=== PATIENT | female | born 1965 | race Caucasian/White ===

== ENCOUNTER 2025-04-20 04:42 | Inpatient (IN) | payer OTHER ==
[~2025-04-20] VITALS: Ht 162.6 cm; Wt 76.4 kg
--- NOTE | 2025-04-20 05:10 | ECG ---
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
[2025-04-20 05:45] LABS: Hematocrit 42.1 % (36.0-46.0); Hemoglobin 14.4 g/dL (12.2-16.2); Mean Corpuscular Hemoglobin 29.9 pg (28.0-32.0); Mean Corpuscular Volume 87.2 fL (80.0-100.0); Nucleated Red Blood Cells % 0.0 %
[2025-04-20 05:51] LABS: Potassium 3.5 mmol/L (3.5-5.1); Sodium 140 mmol/L (136-145)
[2025-04-20 05:52] LABS: Anion Gap 12 (5-15); Calcium 9.0 mg/dL (8.7-10.4); Carbon Dioxide 21 mmol/L (20-31)
[2025-04-20 05:53] LABS: Chloride 107 mmol/L (98-107)
[2025-04-20 05:57] LABS: BUN/Creatinine Ratio 17.9 (10.0-20.0); Blood Urea Nitrogen 12 mg/dL (9-23)
[2025-04-20 05:58] LABS: Glucose 153 mg/dL (74-106)
--- NOTE | 2025-04-20 06:05 | DVH ---
CHEST RADIOGRAPH Indication: CHEST PAIN Technique: Frontal and lateral view of the chest was obtained Comparison: None FINDINGS: Lines and Tubes: None Lungs: Clear Pleura: No effusion. No pneumothorax. Cardiomediastinal contours: Unremarkable Bones: Unremarkable IMPRESSION: 1. No evidence of acute disease.
--- NOTE | 2025-04-20 06:08 | ECG ---
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
--- NOTE | 2025-04-20 06:58 | ED.PDOC ---
HPI Comments This is a 59 year-old female with a Hx of HTN, high lipids, and DM, who presents to the ED with a chief complaint of substernal chest pain as of hours ago. Patient states chest pain as "pressure", non-radiating, with no associated relieving factors. Patient has no further complaints at this time and otherwise denies palpitations, dizziness, weakness, cough, or SOB. Chief Complaint: Chest Pain Time Seen by MD: 06:29 Reviewed Notes: Medications, Allergies Information Source: Patient Mode of Arrival: Ambulatory Severity: Moderate Timing: Hours Duration: Since onset Location: Substernal Radiation: No Radiation Quality: Pressure Onset: At Rest, With Light Exertion, With Heavy Exertion Past Medical History PAST MEDICAL HISTORY: DM, High Lipids, HTN Surgical History: 10 Para 4 Social History Smoker: Non-Smoker Alcohol: Denies ETOH Use Drugs: Denies Drug Use Lives In: Home Constitutional: denies: chills, diaphoresis, fatigue, fever, malaise, sweats, weakness, others EENTM: denies: blurred vision, double vision, ear bleeding, ear discharge, ear drainage, ear pain, ear ringing, eye pain, eye redness, hearing loss, mouth pain, mouth swelling, nasal discharge, nose bleeding, nose congestion, nose pain, photophobia, tearing, throat pain, throat swelling, voice changes, others Respiratory: denies: cough, hemoptysis, orthopnea, SOB at rest, shortness of breath, SOB with excertion, stridor, wheezing, others Cardiovascular: reports: chest pain; denies: dizzy spells, diaphoresis, Dyspnea on exertion, edema, irregular heart beat, left arm pain, lightheadedness, palpitations, PND, syncope, others Gastrointestinal: denies: abdomen distended, abdominal pain, blood streaked bowels, constipated, diarrhea, dysphagia, difficulty swallowing, hematemesis, melena, nausea, poor appetite, poor fluid intake, rectal bleeding, rectal pain, vomiting, others Genitourinary: denies: abnormal vagina bleeding, burning, dyspareunia, dysuria, flank pain, frequency, hematuria, incontinence, pain, , vagina discharg e, urgency, others Neurological: denies: dizziness, fainting, headache, left sided numbness, left sided weakness, numbness, paresthesia, pre-existing deficit, right sided numbness, right sided weakness, seizure, speech problems, tingling, tremors, weakness, others Musculoskeletal: denies: back pain, gout, joint pain, joint swelling, muscle pain, muscle stiffness, neck pain, others Integumetry: denies: bruises, change in color, change in hair/nails, dryness, laceration, lesions, lumps, rash, wounds, others Allergic/Immunocompromised: denies: Difficulty Healing, Frequent Infections, Hives, Itching, others Hematologic/Lymphatic: denies: anemia, blood clots, easy bleeding, easy bruising, swollen glands, others Endocrine: denies: excessive hunger, excessive sweating, excessive thirst, excessive urination, flushing, intolerance to cold, intolerance to heat, unexplained weight gain, unexplained weight loss, others Psychiatric: denies: anxiety, bipolar disorder, depression, hopeless, panic d isorder, schizophrenia, sleepless, suicidal, others All Other Systems: Reviewed and Negative Physical Exam General Appearance: Moderate Distress HEENT: Normal ENT Inspection, Pharynx Normal, TMs Normal Neck: Full Range of Motion, Non-Tender, Normal, Normal Inspection Respiratory: Chest Non-Tender, Lungs Clear, No Accessory Muscle Use, No Respiratory Distress, Normal Breath Sounds Cardiovascular: No Edema, No JVD, No Murmur, No Gallop, Normal Peripheral Pulses, Regular Rate/Rhythm Breast Exam: Deferred Gastrointestinal: No Organomegaly, Non Tender, No Pulsatile Mass, Normal Bowel Sounds, Soft Genitalia: Deferred Pelvic: Deferred Rectal: Deferred Extremities: No calf tenderness, Normal capillary refill, Normal inspection, Normal range of motion, Non-tender, No pedal edema Musculoskeletal : Apperance: Normal Neurologic: Alert, germination worker II-XII nml as Tested, No Motor Deficits, Normal Affect, Normal Mood, No Sensory Deficits Cerebellar Function: Normal Reflexes: Normal Skin: Dry, Normal Color, Warm Peripheral Pulses: 3+ Radial (R), 3+ Radial (L) Lymphatic: No Adenopathy EKG EKG : Pulse Rate (adult): 68 [place]: Normal Cardiac Rhythm: NSR Block: None Hypertrophy: None ST: Normal Was a procedure done? Was a procedure done?: No CP Differential Dx Differential Diagnosis: A-fib, Angina, Anxiety / Panic Attack, Electrolyte Disorder, Sinus Tachycardia Differential Diagnosis: CHF, HTN Essential Differential Diagnosis: Chest Wall Pain, Cholelithiasis X-Ray, Labs, Meds, VS Vital Signs Date Time Temp Pulse Resp B/P (MAP) Pulse Ox O2 Delivery O2 Flow Rate FiO2 04/20/25 07:29 163/93 04/20/25 06:47 98.2 76 18 181/90 (120) 97 98.2 04/20/25 06:06 75 04/20/25 05:08 82 04/20/25 04:53 97.6 82 18 157/94 96 97.6 Lab Test 04/20/25 06:24 04/20/25 05:22 Range/Units Troponin I High Sensitivity 105 *H 86 *H </=34 ng/L White Blood Count 5.2 4.4-10.8 10^3/uL Red Blood Count 4.83 4.0-5.20 10^6/uL Hemoglobin 14.4 12.2-16.2 g/dL Hematocrit 42.1 36.0-46.0 % Mean Corpuscular Volume 87.2 80.0-100.0 fL Mean Corpuscular Hemoglobin 29.9 28.0-32.0 pg Mean Corpuscular Hemoglobin Concent 34.2 32.0-36.0 g/dL Red Cell Distribution Width 13.8 11.8-14.3 % Platelet Count 217 140-450 10^3/uL Mean Platelet Volume 9.2 6.9-10.8 fL Neutrophils (%) (Auto) 49.4 37.0-80.0 % Lymphocytes (%) (Auto) 39.6 10.0-50.0 % Monocytes (%) (Auto) 7.6 0.0-12.0 % Eosinophils (%) (Auto) 2.3 0.0-7.0 % Basophils (%) (Auto) 1.1 0.0-2.0 % Neutrophils # (Auto) 2.6 1.6-8.6 10 ^3/uL Lymphocytes # (Auto) 2.1 0.4-5.4 10 ^3/uL Monocytes # (Auto) 0.4 0-1.3 10 ^3/uL Eosinophils # (Auto) 0.1 0-0.8 10 ^3/uL Basophils # (Auto) 0.1 0-0.2 10 ^3/uL Nucleated Red Blood Cells 0.0 % Sodium Level 140 136-145 mmol/L Potassium Level 3.5 3.5-5.1 mmol/L Chloride Level 107 98-107 mmol/L Carbon Dioxide Level 21 20-31 mmol/L Anion Gap 12 5-15 Blood Urea Nitrogen 12 9-23 mg/dL Creatinine 0.67 0.550-1.02 mg/dL Glomerular Filtration Rate Calc 100 >90 mL/min BUN/Creatinine Ratio 17.9 10.0-20.0 Serum Glucose 153 H 74-106 mg/dL Calcium Level 9.0 8.7-10.4 mg/dL Current Medications Medications (Trade) Dose Ordered Sig/Noah Route Start Time Stop Time Status Last Admin Aspirin 325 mg ONCE ONCE PO 04/20/25 07:00 04/20/25 07:01 DC 04/20/25 07:26 Nitroglycerin (Ntrostat Sublingual) 0.4 mg ONCE ONCE SL 04/20/25 07:00 04/20/25 07:01 DC 04/20/25 07:29 Enoxaparin Sodium (Lovenox) 80 mg ONCE ONCE SC 04/20/25 07:15 04/20/25 07:16 DC 04/20/25 07:57 [place] [id number] Ph: [phone] DIAGNOSTIC IMAGING Diagnostic Imaging Report : [id number] Signed PATIENT: RIKY GOMES ACCT: [id number] UNIT: [id number] : 1965 LOC: ER ROOM / BED: / AGE / SEX: 59 / F ADM STATUS: REG ER SERVICE [id number] ORDERING PHYSICIAN: SAURABH INGRAM MD PROCEDURE(s): CXR2 - CHEST TWO VIEWS ROUTINE REASON: CHEST PAIN ORDER NUMBER(s): [id number], ACCESSION NUMBER(s): [id number] CHEST RADIOGRAPH Indication: CHEST PAIN Technique: Frontal and lateral view of the chest was obtained Comparison: None FINDINGS: Lines and Tubes: None Lungs: Clear Pleura: No effusion. No pneumothorax. Cardiomediastinal contours: Unremarkable Bones: Unremarkable IMPRESSION: 1. No evidence of acute disease. Patient alert. Came in because of chest pain. Vitals stable. Answering questions. Chest x-ray reviewed does not show any acute changes. Cardiac marker elevated. Was given aspirin. Was given nitro. Was given Lovenox. Has risk factors for coronary artery disease. Cardiology consultation. Explained to the patient. Continue monitoring. Images Reviewed?: Images reviewed and evaluated by me Time of 1ST Reevaluation: 07:42 Reevaluation 1ST: Unchanged Patient Education/Counseling: Diagnosis, Treatment Family Education/Counseling: No Family Present SEPSIS Sepsis Screen Date sepsis recognized/suspect: Apr 20, 2025 Time Sepsis recognized/suspect: 456 Recent Procedure: No On Antibiotic Therapy: No Respiratory Rate >20: No Heart Rate >90: No Temp<36 C (96.8 F) or >38.3 C: No SBP <90 or MAP <65 mmHG: No New Acute Mental Status Change: No Is the patient on CPAP, BIPAP,: No Physician Orders Chest Two Views Routine (04/20/25 04:59) Troponin-I Hs (04/20/25 07:59) Urinalysis (04/20/25 06:48) * Cardiology Consult (04/20/25 07:13) Vital Signs Date Time Temp Pulse Resp B/P (MAP) Pulse Ox O2 Delivery O2 Flow Rate FiO2 04/20/25 07:29 163/93 04/20/25 06:47 98.2 76 18 181/90 (120) 97 98.2 04/20/25 06:06 75 04/20/25 05:08 82 04/20/25 04:53 97.6 82 18 157/94 96 97.6 Laboratory Tests Test 04/20/25 05:22 White Blood Count 5.2 10^3/uL (4.4-10.8) Medications Medications Dose Ordered Sig/Noah Route Start Time Stop Time Status Last Admin Dose Admin Aspirin 325 mg ONCE ONCE PO 04/20/25 07:00 04/20/25 07:01 DC 04/20/25 07:26 Enoxaparin Sodium 80 mg ONCE ONCE SC 04/20/25 07:15 04/20/25 07:16 DC 04/20/25 07:57 Nitroglycerin 0.4 mg ONCE ONCE SL 04/20/25 07:00 04/20/25 07:01 DC 04/20/25 07:29 Departure 1 Departure Time of Disposition: 07:12 Impression: Primary Impression: NSTEMI (non-ST elevated myocardial infarction) Disposition: 09 ADMITTED INPATIENT Admit to: Med Surg Condition: Guarded Critical Care Note Critical Care Time?: Yes (90 min-critical care time only) Stability Stability form required: No Heart Score Heart Score: Heart Score Response (Comments) Value History Moderate Suspicious 1 EKG Normal 0 Age 45-64 1 Risk Factors 1 or 2 risk factors 1 Troponin >3 x's Normal limit 2 Total 5 I personally scribed for HAMILTON MEJÍA MD ([email or web address]) on 04/20/25 at 06:58. Electronically submitted by Yady Fernandez ([employer]). I personally scribed for HAMILTON MEJÍA MD ([email or web address]) on 04/20/25 at 06:58. Electronically submitted by Yady Fernandez ([employer]). I personally scribed for HAMILTON MEJÍA MD ([email or web address]) on 04/20/25 at 07:10. Electronically submitted by Yady Fernandez ([email or web address]). I personally scribed for HAMILTON MEJÍA MD ([email or web address]) on 04/20/25 at 08:13. Electronically submitted by Yady Fernandez ([employer]). HAMILTON MEJÍA MD Apr 20, 2025 06:58
[2025-04-20] MEDS: NITROGLYCERIN 0.4 MG SL TAB SL ONE (07:29)
[2025-04-20] MEDS: ENOXAPARIN SOD 80 MG/0.8ML SYRINGE SC ONE (07:57)
--- NOTE | 2025-04-20 08:12 | ECG ---
[facility] Test Date: 2025-04-20 Test Time: 08:10:37 Pat Name: RIKY GOMES Department: Room: 0216T Gender: F Attendant Child Activity: CASEY : 1965 Requested By: SAURABH INGRAM Order Number: [id number] Reading MD: Curtis Wilkins Measurements Intervals [place] Rate: 68 P: 72 ND: 158 QRS: 89 QRSD: 84 T: 0 QT: 399 QTc: 425 Interpretive Statements Sinus rhythm Borderline right axis deviation Minimal ST depression, inferior leads Electronically Signed On 04-22-2025 15:09:20 PDT by Curtis Wilkins Please click the below link to view image of tracing.
[2025-04-20 09:40] VITALS: PULSE 72; RESP 28; O2SAT 98
[2025-04-20 10:07] LABS: Urine Protein, UAD Negative (Negative)
[2025-04-20] MEDS ORDERED: NITROGLYCERIN 0.4 MG SL TAB SL PRN (11:00)
[2025-04-20] MEDS ORDERED: MORPHINE SULFATE 4 MG/ML SYR/VIAL IV PRN (11:30)
[2025-04-20] MEDS: hydrALAZINE HCL 20 MG/ML VL IV PRN (11:32)
--- NOTE | 2025-04-20 12:13 | DVHHP2 ---
History of Present Illness Reason for Visit: Chest pain History of Present Illness 59-year-old female presents for evaluation of chest pain. Patient endorses developing substernal pressure-like pain that is nonradiating today in the morning while lying in bed. Currently rates the pain at 5/10 in intensity. Reports mild shortness for breath. No nausea or vomiting. Past Medical History Hypertension, diabetes mellitus, dyslipidemia Past Surgical History Family History Noncontributory Review of Systems Review of Systems Review of systems are currently negative otherwise addressed in HPI. Allergies: Coded Allergies: NO KNOWN ALLERGIES (Unverified , 04/20/25) Medications Current Medications Medications Dose Ordered Sig/Noah Route Start Time Stop Time Status Last Admin Dose Admin Aspirin 162 mg DAILY PO 04/21/25 10:00 Atorvastatin Calcium 10 mg HS PO 04/20/25 22:00 Hydralazine HCl 10 mg Q6HP PRN IV 04/20/25 11:00 04/20/25 11:32 10 MG Ondansetron HCl 4 mg Q4HP PRN IV 04/20/25 11:00 Nitroglycerin 0.4 mg Q5MINP PRN SL 04/20/25 11:00 Morphine Sulfate 2 mg Q30M PRN IV 04/20/25 11:30 Exam Vital Signs Vital Signs Date Time Temp Pulse Resp B/P (MAP) Pulse Ox O2 Delivery O2 Flow Rate FiO2 04/20/25 12:00 98.2 86 14 161/84 (109) 97 98.2 04/20/25 09:40 Room Air* 0 21 Exam Gen: 59-year-old female in mild distress Skin: Warm, dry, normal color and texture, no rash. HEENT: Normocephalic atraumatic, mucous membranes moist and pink. Neck: Cervical and supraclavicular nodes normal without enlargement, trachea is midline, thyroid gland is normal without masses. Pulmonary: Clear to auscultation and percussion bilaterally. Cardiac: Regular rate and rhythm. No murmur Abdomen: Soft, nontender, nondistended, bowel sounds present all 4 quadrants, no guarding, no rigidity, no organomegaly. Extremities: No cyanosis, clubbing, no edema Neuro: Cranial nerves II through XII grossly intact, normal affect and speech, no focal motor deficits. Labs/Xrays ORDERING PHYSICIAN: SAURABH INGRAM MD PROCEDURE(s): CXR2 - CHEST TWO VIEWS ROUTINE REASON: CHEST PAIN ORDER NUMBER(s): [id number], ACCESSION NUMBER(s): [id number] CHEST RADIOGRAPH Indication: CHEST PAIN Technique: Frontal and lateral view of the chest was obtained Comparison: None FINDINGS: Lines and Tubes: None Lungs: Clear Pleura: No effusion. No pneumothorax. Cardiomediastinal contours: Unremarkable Bones: Unremarkable IMPRESSION: 1. No evidence of acute disease. Labs Test 04/20/25 09:39 04/20/25 08:16 04/20/25 05:22 Range/Units Urine Color Light-yellow Yellow Urine Clarity Turbid H Clear Urine pH 5.5 5.0-9.0 Urine Specific [place] 1.017 1.001-1.035 Urine Protein Negative Negative Urine Ketones Negative Negative Urine Blood Negative Negative /uL Urine Nitrite Negative Negative Urine Bilirubin Negative Negative Urine Urobilinogen Normal Negative mg/dL Urine Leukocyte Esterase 1+ Negative /uL Urine RBC 3 0 - 4 /hpf Urine Microscopic WBC 4 0-5 /HPF Urine Squamous Epithelial Cells Few <5 /hpf Urine Bacteria Mod H None Seen /hpf Urine Mucus Few None Seen Urine Glucose Normal Normal mg/dL Troponin I High Sensitivity 134 *H </=34 ng/L White Blood Count 5.2 4.4-10.8 10^3/uL Red Blood Count 4.83 4.0-5.20 10^6/uL Hemoglobin 14.4 12.2-16.2 g/dL Hematocrit 42.1 36.0-46.0 % Mean Corpuscular Volume 87.2 80.0-100.0 fL Mean Corpuscular Hemoglobin 29.9 28.0-32.0 pg Mean Corpuscular Hemoglobin Concent 34.2 32.0-36.0 g/dL Red Cell Distribution Width 13.8 11.8-14.3 % Platelet Count 217 140-450 10^3/uL Mean Platelet Volume 9.2 6.9-10.8 fL Neutrophils (%) (Auto) 49.4 37.0-80.0 % Lymphocytes (%) (Auto) 39.6 10.0-50.0 % Monocytes (%) (Auto) 7.6 0.0-12.0 % Eosinophils (%) (Auto) 2.3 0.0-7.0 % Basophils (%) (Auto) 1.1 0.0-2.0 % Neutrophils # (Auto) 2.6 1.6-8.6 10 ^3/uL Lymphocytes # (Auto) 2.1 0.4-5.4 10 ^3/uL Monocytes # (Auto) 0.4 0-1.3 10 ^3/uL Eosinophils # (Auto) 0.1 0-0.8 10 ^3/uL Basophils # (Auto) 0.1 0-0.2 10 ^3/uL Nucleated Red Blood Cells 0.0 % Sodium Level 140 136-145 mmol/L Potassium Level 3.5 3.5-5.1 mmol/L Chloride Level 107 98-107 mmol/L Carbon Dioxide Level 21 20-31 mmol/L Anion Gap 12 5-15 Blood Urea Nitrogen 12 9-23 mg/dL Creatinine 0.67 0.550-1.02 mg/dL Glomerular Filtration Rate Calc 100 >90 mL/min BUN/Creatinine Ratio 17.9 10.0-20.0 Serum Glucose 153 H 74-106 mg/dL Calcium Level 9.0 8.7-10.4 mg/dL SEPSIS Sepsis Screen Date sepsis recognized/suspect: Apr 20, 2025 Time Sepsis recognized/suspect: 09 Recent Procedure: No On Antibiotic Therapy: No Respiratory Rate >20: Yes Heart Rate >90: No Temp<36 C (96.8 F) or >38.3 C: No SBP <90 or MAP <65 mmHG: No New Acute Mental Status Change: No Is the patient on CPAP, BIPAP,: No Physician Orders Chest Two Views Routine (04/20/25 04:59) * Cardiology Consult (04/20/25 07:13) Aspirin Tablet (04/21/25 10:00) Atorvastatin (Lipitor) (04/20/25 22:00) Hydralazine Injection (Apresoline Inject (04/20/25 11:00) Basic Metabolic Panel (04/21/25 04:00) Admit (04/20/25 10:55) Ondansetron Hcl (Zofran) (04/20/25 11:00) Cardiac Diet-2gna,Lofat,Lochol (04/20/25 Lunch) Echo 2d Mode Cardiac Dop (04/20/25 10:55) Condition: Fair (04/20/25 10:55) Bedrest With Bathroom Privileg (04/20/25 10:55) Nitroglycerin Sublingual (Ntrostat Subli (04/20/25 11:00) Stat Ekg For Chest Pain (04/20/25 10:55) Notify Of Changes From Base (04/20/25 10:55) Branch Maker For 24 Hours (04/20/25 10:55) Emergency Dysrhythmia Protocol (04/20/25 10:55) Rhythm Strips Once Every Shift (04/20/25 10:55) Oxygen By Nasal Cannula (04/20/25 10:55) Morphine Sulfate Injection (04/20/25 11:30) Lisinopril Tablet (Zestril Tablet) (04/21/25 10:00) Lisinopril Tablet (Zestril Tablet) (04/20/25 12:15) Atorvastatin (Lipitor) (04/20/25 22:00) Thyroid Stimulating Hormone (04/20/25 12:08) Lipid Panel (04/20/25 12:08) Vital Signs Date Time Temp Pulse Resp B/P (MAP) Pulse Ox O2 Delivery O2 Flow Rate FiO2 04/20/25 12:00 98.2 86 14 161/84 (109) 97 98.2 04/20/25 11:32 176/156 04/20/25 11:25 98.6 72 16 176/93 (120) 98 98.6 04/20/25 10:00 98.2 81 14 171/96 (121) 97 98.2 04/20/25 09:55 176/93 04/20/25 09:40 72 28 98 Room Air* 0 21 04/20/25 09:39 80 04/20/25 08:22 80 18 97 Room Air 04/20/25 08:22 98.2 80 18 143/90 (107) 97 98.2 04/20/25 08:13 68 04/20/25 08:10 68 04/20/25 07:29 163/93 04/20/25 06:47 98.2 76 18 181/90 (120) 97 98.2 04/20/25 06:06 75 04/20/25 05:08 82 04/20/25 04:53 97.6 82 18 157/94 96 97.6 Laboratory Tests Test 04/20/25 05:22 White Blood Count 5.2 10^3/uL (4.4-10.8) Medications Medications Dose Ordered Sig/Noah Route Start Time Stop Time Status Last Admin Dose Admin Aspirin 325 mg ONCE ONCE PO 04/20/25 07:00 04/20/25 07:01 DC 04/20/25 07:26 325 MG Enoxaparin Sodium 80 mg ONCE ONCE SC 04/20/25 07:15 04/20/25 07:16 DC 04/20/25 07:57 80 MG Hydralazine HCl 10 mg Q6HP PRN IV 04/20/25 11:00 04/20/25 11:32 10 MG Nitroglycerin 0.4 mg ONCE ONCE SL 04/20/25 07:00 04/20/25 07:01 DC 04/20/25 07:29 0.4 MG Assessment/Plan Assessment/Plan Assessment NSTEMI Diabetes mellitus Hypertension Plan Admit the patient to telemetry to the hospitalist ACS protocol Follow cardiology recommendations Resume home medications Continue treatment per orders. Plan discussed with: Patient My Orders Orders - JENNIFFER SANCHEZ Procedure Category Date Status Time Aspirin Tablet PHA 04/21/25 In Process 10:00 Atorvastatin (Lipitor) PHA 04/20/25 In Process 22:00 Hydralazine Injection PHA 04/20/25 In Process (Apresoline Inject 11:00 Basic Metabolic Panel LAB 04/21/25 Verified 04:00 Admit ADMIT 04/20/25 Transmitted 10:55 Ondansetron Hcl PHA 04/20/25 In Process (Zofran) 11:00 Cardiac DIET 04/20/25 Transmitted Diet-2gna,Lofat,Lochol Lunch Echo 2d Mode Cardiac US 04/20/25 Logged DOP 10:55 Condition: Fair AMCIEJ 04/20/25 In Process 10:55 Bedrest With Bathroom MACIEJ 04/20/25 In Process Privileg 10:55 Nitroglycerin PHA 04/20/25 In Process Sublingual (Ntrostat 11:00 Stat Ekg For Chest MACIEJ 04/20/25 In Process Pain 10:55 Notify Of Changes MACIEJ 04/20/25 In Process From Base 10:55 Branch Maker For MACIEJ 04/20/25 In Process 24 Hours 10:55 Emergency Dysrhythmia MACIEJ 04/20/25 In Process Protocol 10:55 Rhythm Strips Once MACIEJ 04/20/25 In Process Every Shift 10:55 Oxygen By Nasal RT 04/20/25 Transmitted Cannula 10:55 Morphine Sulfate PHA 04/20/25 In Process Injection 11:30 Lisinopril Tablet PHA 04/21/25 Transmitted (Zestril Tablet) 10:00 Lisinopril Tablet PHA 04/20/25 Transmitted (Zestril Tablet) 12:15 Atorvastatin (Lipitor) PHA 04/20/25 Transmitted 22:00 Thyroid Stimulating LAB 04/20/25 Transmitted Hormone 12:08 Lipid Panel LAB 04/20/25 Transmitted 12:08 Date of Service: Apr 20, 2025 Billing Provider: JENNIFFER SANCHEZ Common Visit Codes: [id number] INP/OBS CARE (HIGH) JENNIFFER SANCHEZ Apr 20, 2025 12:13
[2025-04-20] MEDS: LISINOPRIL 5 MG TAB PO ONE (12:15)
[2025-04-20 12:26] LABS: Triglycerides 142 mg/dL (< 150)
[2025-04-20 12:28] LABS: Cholesterol 150 mg/dL (< 200); HDL Cholesterol 41 mg/dL (40-59)
[2025-04-20] MEDS ORDERED: DEXTROSE (50%) 50ML SYRG IV PRN (13:15)
[2025-04-20 13:25] VITALS: BP 167/96; PULSE 79; RESP 18; TEMP 98.2; O2SAT 97
[2025-04-20 13:41] VITALS: BP 167/96; PULSE 79; RESP 18; TEMP 98.2; O2SAT 97
--- NOTE | 2025-04-20 13:56 | DVHINCON2 ---
FILIBERTO MANDUJANO RESIDENT 04/20/25 1356: Date Seen: Apr 20, [address] Irizarry Reason for Consultation Chest pain, elevated troponin, and abnormal EKG History of Present Illness This is a 59-year-old female with past medical history of type 2 diabetes mellitus on metformin 500 mg BID, hypertension on lisinopril 5 mg daily, and hyperlipidemia on atorvastatin 20 mg daily. She is visiting family in [place] from [place]. Around midnight, she developed a tight, retrosternal chest pain rated 2/10 in intensity. The pain increased to 4/10 upon arrival to the emergency department. It was described as pressure-like, without radiation, not associated with diaphoresis, nausea, vomiting, or dyspnea. Pain improved significantly after receiving sublingual nitroglycerin 34 hours ago. Initial EKG showed sinus rhythm at [address]-segment changes in leads II, III, and aVF. Serial troponins were mildly elevated but trending upward (86 - 105 - 134 ng/L). Given her diabetes, elevated cardiac biomarkers, dynamic EKG changes, and nitrate-responsive chest pain, cardiology was consulted. Past Medical History: Type 2 diabetes mellitus Hypertension Hyperlipidemia Past Surgical History: Denies any major surgeries Medications: Metformin 500 mg BID Lisinopril 5 mg daily Atorvastatin 20 mg daily Allergies: No known drug allergies Family History: Non-contributory for premature CAD Social History: Denies tobacco, alcohol, or illicit drug use Visiting from [place], currently staying with family Allergies: Coded Allergies: NO KNOWN ALLERGIES (Unverified , 04/20/25) Current Medications Current Medications Medications (Trade) Dose Ordered Sig/Noah Route PRN Reason Start Time Stop Time Status Last Admin Aspirin 162 mg DAILY PO 04/21/25 10:00 Atorvastatin Calcium (Lipitor) 10 mg HS PO 04/20/25 22:00 04/20/25 12:42 DC Hydralazine HCl (Apresoline Injection) 10 mg Q6HP PRN IV SBP>150 04/20/25 11:00 04/20/25 11:32 Ondansetron HCl (Zofran) 4 mg Q4HP PRN IV NAUSEA / VOMITING 04/20/25 11:00 Nitroglycerin (Ntrostat Sublingual) 0.4 mg Q5MINP PRN SL FOR CHEST PAIN 04/20/25 11:00 Morphine Sulfate 2 mg Q30M PRN IV FOR CHEST PAIN 04/20/25 11:30 Lisinopril (Zestril Tablet) 10 mg DAILY PO 04/21/25 10:00 04/20/25 13:19 DC Atorvastatin Calcium (Lipitor) 40 mg HS PO 04/20/25 22:00 04/20/25 13:26 DC Lisinopril (Zestril Tablet) 20 mg DAILY PO 04/21/25 10:00 Diagnostic Test (Pha) (Accu-Chek Comfort Curve T) 1 strip ACHS 04/20/25 17:00 Insulin Human Regular (InsuLIN R) ACHS SC 04/20/25 17:00 Dextrose 50 ml UD PRN IV Blood Sugar LESS THAN 60 04/20/25 13:15 Atorvastatin Calcium (Lipitor) 40 mg HS PO 04/20/25 22:00 Review of Systems Constitutional: Denies fever, chills, or weight loss. Cardiovascular: Reports chest tightness; denies palpitations, orthopnea, or leg swelling. Respiratory: Denies shortness of breath, cough, or wheezing. GI: Denies nausea, vomiting, or abdominal pain. : No dysuria or hematuria. Neuro: No dizziness, syncope, or focal deficits. Endocrine: No polyuria or polydipsia. All other systems reviewed and negative. Vital Signs Vital Signs Date Time Temp Pulse Resp B/P (MAP) Pulse Ox O2 Delivery O2 Flow Rate FiO2 04/20/25 12:00 98.2 86 14 161/84 (109) 97 98.2 04/20/25 09:40 Room Air* 0 21 Physical Exam Physical Examination: General: Alert, oriented, in no acute distress. HEENT: Normocephalic, atraumatic, PERRLA, mucous membranes moist. Neck: No JVD, no carotid bruits. CV: Regular rate and rhythm, no murmurs, rubs, or gallops. Lungs: Clear to auscultation bilaterally, no wheezes or rales. Abdomen: Soft, non-tender, no hepatosplenomegaly. Extremities: No edema, pulses 2+ bilaterally. Neuro: Grossly intact. Skin: Warm, dry. Labs/Diagnostic Data Labs Test 04/20/25 09:39 04/20/25 08:16 04/20/25 05:22 Range/Units Urine Color Light-yellow Yellow Urine Clarity Turbid H Clear Urine pH 5.5 5.0-9.0 Urine Specific [place] 1.017 1.001-1.035 Urine Protein Negative Negative Urine Ketones Negative Negative Urine Blood Negative Negative /uL Urine Nitrite Negative Negative Urine Bilirubin Negative Negative Urine Urobilinogen Normal Negative mg/dL Urine Leukocyte Esterase 1+ Negative /uL Urine RBC 3 0 - 4 /hpf Urine Microscopic WBC 4 0-5 /HPF Urine Squamous Epithelial Cells Few <5 /hpf Urine Bacteria Mod H None Seen /hpf Urine Mucus Few None Seen Urine Glucose Normal Normal mg/dL Troponin I High Sensitivity 134 *H </=34 ng/L Triglycerides Level 142 < 150 mg/dL Cholesterol Level 150 < 200 mg/dL LDL Cholesterol 94 < 100 mg/dL HDL Cholesterol 41 40-59 mg/dL Thyroid Stimulating Hormone (TSH) 2.29 0.55-4.78 uIU/mL White Blood Count 5.2 4.4-10.8 10^3/uL Red Blood Count 4.83 4.0-5.20 10^6/uL Hemoglobin 14.4 12.2-16.2 g/dL Hematocrit 42.1 36.0-46.0 % Mean Corpuscular Volume 87.2 80.0-100.0 fL Mean Corpuscular Hemoglobin 29.9 28.0-32.0 pg Mean Corpuscular Hemoglobin Concent 34.2 32.0-36.0 g/dL Red Cell Distribution Width 13.8 11.8-14.3 % Platelet Count 217 140-450 10^3/uL Mean Platelet Volume 9.2 6.9-10.8 fL Neutrophils (%) (Auto) 49.4 37.0-80.0 % Lymphocytes (%) (Auto) 39.6 10.0-50.0 % Monocytes (%) (Auto) 7.6 0.0-12.0 % Eosinophils (%) (Auto) 2.3 0.0-7.0 % Basophils (%) (Auto) 1.1 0.0-2.0 % Neutrophils # (Auto) 2.6 1.6-8.6 10 ^3/uL Lymphocytes # (Auto) 2.1 0.4-5.4 10 ^3/uL Monocytes # (Auto) 0.4 0-1.3 10 ^3/uL Eosinophils # (Auto) 0.1 0-0.8 10 ^3/uL Basophils # (Auto) 0.1 0-0.2 10 ^3/uL Nucleated Red Blood Cells 0.0 % Sodium Level 140 136-145 mmol/L Potassium Level 3.5 3.5-5.1 mmol/L Chloride Level 107 98-107 mmol/L Carbon Dioxide Level 21 20-31 mmol/L Anion Gap 12 5-15 Blood Urea Nitrogen 12 9-23 mg/dL Creatinine 0.67 0.550-1.02 mg/dL Glomerular Filtration Rate Calc 100 >90 mL/min BUN/Creatinine Ratio 17.9 10.0-20.0 Serum Glucose 153 H 74-106 mg/dL Calcium Level 9.0 8.7-10.4 mg/dL Assessment NSTEMI (type 1 ACS). Hypertension Hyperlipidemia Diabetes mellitus type 2 Plan/Recommendation 59-year-old female with PMHx of DM2, HTN, and HLD presenting with chest pain, mild troponin elevation, and inferior ST changes. Given her risk factors, dynam ic troponins, and nitrate-responsive pain, she meets criteria for NSTEMI (type 1 ACS). Telemetry for monitoring. Aspirin 81 mg daily and start atorvastatin 40 mg daily. Lisinopril 20 mg daily. ISS Maintain NPO after midnight Tuesday for left heart catheterization scheduled Tuesday per Dr. Coelho. Monitor for recurrent chest pain; if recurrence, notify cardiology stat. Optimize glycemic and blood pressure control during admission. Case discussed with Dr Coelho Time spent on care 71 min Plan discussed with: Patient NYHA Physical activity limitations: Class2(Slight)fatigue,sob Date of Service: Apr 20, 2025 Billing Provider: RONAL CARRANZA Sr., MD Cardiology Common Codes: [id number] CARE 30-74 MIN SKYLAR COELHO MD 04/20/25 1405: Allergies: Coded Allergies: NO KNOWN ALLERGIES (Unverified , 04/20/25) Plan/Recommendation pt seen with cv team +nstemi, +symptoms exertional, better with nitro ecg changes echo pending offered [facility], pt will decline and leave ama likely as she lives an hour away pt uunderstands risks benefits alternatives Plan discussed with: Patient FILIBERTO MANDUJANO RESIDENT Apr 20, 2025 13:56 SKYLAR COELHO MD Apr 20, 2025 14:05
[2025-04-20] MEDS: LISINOPRIL 20 MG TAB PO ONE (14:38)
[2025-04-20] MEDS ORDERED: ATOR-507 PO (16:01)
[2025-04-20] MEDS ORDERED: METF-372 PO (16:01)
[2025-04-20] MEDS ORDERED: LISI-275 PO (16:01)
[2025-04-20 17:00] VITALS: BP 160/89; PULSE 78; RESP 18; TEMP 98.2; O2SAT 97
[2025-04-20] MEDS: InsuLIN REG 1unit/0.01ml Soln (100units/ml) SC SCH (17:00)
[2025-04-20] MEDS: ACCU-CHEK COMFORT CURVE STRIP VI SCH (17:08)
[2025-04-20 20:00] VITALS: PULSE 85
[2025-04-20 21:00] VITALS: BP 172/88; PULSE 100; RESP 19; TEMP 97.9; O2SAT 95
[2025-04-20] MEDS: ACETAMINOPHEN 325 MG TAB PO PRN (21:20)
[2025-04-20] MEDS ORDERED: ATORVASTATIN 20 MG TAB PO SCH ×2 (22:00)
[2025-04-20] MEDS: ATORVASTATIN 20 MG TAB PO SCH (22:00)
[2025-04-21] VITALS (8 sets, daily range): BP systolic 112–138; BP diastolic 69–85; PULSE 74–98; RESP 16–21; TEMP 97.5–98.6; O2SAT 95–99
[2025-04-21 06:29] LABS: INR 1.04 (0.9-1.15); Partial Thromboplastin Time 28.4 SEC (24.5-34.5); Prothrombin Time 11.0 sec (9.3-11.8); Sodium 143 mmol/L (136-145)
[2025-04-21 06:30] LABS: Anion Gap 11 (5-15); Calcium 9.0 mg/dL (8.7-10.4); Carbon Dioxide 22 mmol/L (20-31)
[2025-04-21 06:35] LABS: BUN/Creatinine Ratio 15.0 (10.0-20.0)
[2025-04-21 06:44] LABS: Blood Urea Nitrogen 9 mg/dL (9-23); Chloride 110 mmol/L (98-107); Glucose 132 mg/dL (74-106); Potassium 3.4 mmol/L (3.5-5.1)
--- NOTE | 2025-04-21 07:24 | DVHPNRES ---
Progress Note Date Seen: Apr 21, 2025 Resident Creating Document: GUILLE ARANGO RESIDENT Medical Necessity Reason Pt with a Central, PICC or Fol: No Subjective Review of Systems Karishma Glass is a 59-year-old female who presents to ED with chief complaint of retrosternal, nonradiating oppressive chest pain intensity 2/10 which started at midnight before her admission (duration 3-4 hours), resolved with nitroglycerin. Denies any other associated symptoms including diaphoresis, nausea, vomiting and dyspnea. EKG in ED shows sinus rhythm with inverted T-waves in inferior leads and mildly elevated troponin with significant delta (86 - 105 - 134 ng/L). Given her diabetes, elevated cardiac biomarkers, EKG changes, and nitrate- responsive chest pain, cardiology was consulted. Past Medical History: Diabetes mellitus, Hypertension, Hyperlipidemia Past Surgical History: Denies Family history: Noncontributory Social history: Lives in [place], visiting family in [place]. Denies current tobacco, alcohol and other drug abuse Allergies: Denies Home medication: Metformin 500 mg BID, Lisinopril 5 mg daily, Atorvastatin 20 mg daily Patient seen and examined at bedside. Currently has no new complaints. Objective vital signs Vital Sign Date Time Temp Pulse Resp B/P (MAP) Pulse Ox O2 Delivery O2 Flow Rate FiO2 04/21/25 05:00 98.2 91 20 112/73 (86) 95 98.2 04/20/25 13:41 Room Air* 0 21 Total Intake and Output 04/20/25 04/20/25 04/21/25 15:00 23:00 07:00 Intake Total 225 ml 240 ml Balance 225 ml 240 ml medications Current Medications Medications Dose Ordered Sig/Noah Route Start Time Stop Time Status Last Admin Dose Admin Hydralazine HCl 10 mg Q6HP PRN IV 04/20/25 11:00 04/20/25 21:20 10 MG Ondansetron HCl 4 mg Q4HP PRN IV 04/20/25 11:00 Nitroglycerin 0.4 mg Q5MINP PRN SL 04/20/25 11:00 Morphine Sulfate 2 mg Q30M PRN IV 04/20/25 11:30 Lisinopril 20 mg DAILY PO 04/21/25 10:00 Diagnostic Test (Pha) 1 strip ACHS 04/20/25 17:00 04/21/25 06:00 1 STRIP Insulin Human Regular ACHS SC 04/20/25 17:00 04/21/25 06:10 2 UNITS Dextrose 50 ml UD PRN IV 04/20/25 13:15 Atorvastatin Calcium 40 mg HS PO 04/20/25 22:00 Aspirin 81 mg DAILY PO 04/21/25 10:00 Acetaminophen 650 mg Q6HP PRN PO 04/20/25 21:00 04/20/25 21:20 650 MG Examination Patient lying in bed, in no acute distress General: Lucid, afebrile, mucosae are moist Cardiovascular: Normal S1 and S2. No murmurs, gallops or rubs Respiratory: Normal ventilation mechanics. Clear lung sounds on auscultation Abdomen: Soft, nontender, no organomegaly, normal bowel sounds MSK/skin: Mobilizes 4 limbs. Skin is dry and warm Neurological: Oriented in 3 spheres. No motor no sensitive deficits. Pupils are isocoric and reactive laboratory and microbiology Laboratory Tests 04/21/25 04:29 04/20/25 05:22 Test 04/21/25 04:29 Range/Units Serum Glucose 132 H 74-106 mg/dL Problem List/Assessment/Plan Problem List/Assessment/Plan Assessment NSTEMI probable type 1 Hypertension Hyperlipidemia Diabetes mellitus type 2 Plan/Recommendation Patient has multiple cardiovascular risk factors, anginal symptoms, mild troponin elevation, and inferior ST changes. Ordered echocardiogram, pending Telemetry for monitoring. Aspirin 81 mg daily and start atorvastatin 40 mg daily. Lisinopril 20 mg daily. ISS Maintain NPO after midnight Tuesday for left heart catheterization scheduled Tuesday per Dr. Larios. Monitor for recurrent chest pain; if recurrence, notify cardiology stat. Optimize glycemic and blood pressure control during admission. Goals of care discussed with patient for over 18 minutes: Full code status Discussed plan with Dr. Larios, patient and nurses: Patient currently on telemetry status. Planning on coronary angiography for 04/22/2025. Have discussed risks and benefits with patient, she understands. Plan discussed with: Patient, Other (Nurses) Visit Coding Cardiology RES Date of Service: Apr 21, 2025 Billing Provider: RONAL CARRANZA Sr., MD Cardiology Common Codes: [id number] HOSP CARE(High Cardiology Secondary Visit Cod: [id number] CARE PLAN 30 MINUTES GUILLE ARANGO RESIDENT Apr 21, 2025 07:24
[2025-04-21] MEDS: POTASSIUM CHL 20MEQ/100ML 100 ML IV SCH (08:33)
[2025-04-21] MEDS: ENOXAPARIN SOD 100 MG/1 ML SYRINGE SC SCH (09:56)
[2025-04-21] MEDS: LISINOPRIL 20 MG TAB PO SCH (09:56)
[2025-04-21] MEDS ORDERED: LISINOPRIL 5 MG TAB PO SCH (10:00)
--- NOTE | 2025-04-21 12:57 | DVHPN2 ---
Reviewed: Care Plan, H&P, Labs, Medications, Previous Orders, Radiology Changes from previous H/P or p: No Changes Objective Vitals Vital Signs Date Time Temp Pulse Resp B/P (MAP) Pulse Ox O2 Delivery O2 Flow Rate FiO2 04/21/25 09:56 125/69 04/21/25 09:00 98.6 93 16 98 98.6 04/21/25 08:00 Room Air* 0 21 Intake/Output Intake and Output 04/21/25 07:00 Intake Total 465 ml Balance 465 ml Intake Oral 465 ml # Voids 5 # Bowel Movements 1 Medications Current Medications Medications Dose Ordered Sig/Noah Route Start Time Stop Time Status Last Admin Dose Admin Hydralazine HCl 10 mg Q6HP PRN IV 04/20/25 11:00 04/20/25 21:20 10 MG Ondansetron HCl 4 mg Q4HP PRN IV 04/20/25 11:00 Nitroglycerin 0.4 mg Q5MINP PRN SL 04/20/25 11:00 Morphine Sulfate 2 mg Q30M PRN IV 04/20/25 11:30 Lisinopril 20 mg DAILY PO 04/21/25 10:00 04/21/25 09:56 20 MG Diagnostic Test (Pha) 1 strip ACHS 04/20/25 17:00 04/21/25 11:30 1 STRIP Insulin Human Regular ACHS SC 04/20/25 17:00 04/21/25 12:37 3 UNITS Dextrose 50 ml UD PRN IV 04/20/25 13:15 Atorvastatin Calcium 40 mg HS PO 04/20/25 22:00 Aspirin 81 mg DAILY PO 04/21/25 10:00 04/21/25 09:55 81 MG Acetaminophen 650 mg Q6HP PRN PO 04/20/25 21:00 04/21/25 08:32 650 MG Enoxaparin Sodium 80 mg Q12HR SC 04/21/25 10:00 04/21/25 09:56 80 MG Laboratory Results Laboratory Tests 04/20/25 05:22 04/21/25 04:29 Chemistry Test 04/21/25 04:29 Calcium Level 9.0 mg/dL (8.7-10.4) Magnesium Level 1.9 mg/dL (1.6-2.6) Coagulation Test 04/21/25 04:29 Prothrombin Time 11.0 sec (9.3-11.8) Prothrombin Time INR 1.04 (0.9-1.15) Activated Partial Thromboplast Time 28.4 SEC (24.5-34.5) HgA1c, TSH Test 04/21/25 04:29 Hemoglobin A1c 7.5 % A1C (<5.7) H Urinalysis Test 04/20/25 09:39 Urine Color Light-yellow (Yellow) Urine Clarity Turbid (Clear) H Urine pH 5.5 (5.0-9.0) Urine Specific [place] 1.017 (1.001-1.035) Urine Protein Negative (Negative) Urine Ketones Negative (Negative) Urine Blood Negative /uL (Negative) Urine Nitrite Negative (Negative) Urine Bilirubin Negative (Negative) Urine Urobilinogen Normal mg/dL (Negative) Urine Leukocyte Esterase 1+ /uL (Negative) Urine RBC 3 /hpf (0 - 4) Urine Microscopic WBC 4 /HPF (0-5) Urine Squamous Epithelial Cells Few /hpf (<5) Urine Bacteria Mod /hpf (None Seen) H Urine Mucus Few (None Seen) Urine Glucose Normal mg/dL (Normal) Labs and/or images reviewed: Labs reviewed by me, Image(s) reviewed by me Assessment/Plan Assessment/Plan Acute non ST-elevation [place] troponin 134, treatment per ACS protocol . Consult by Dr. Larios appreciated planning for left heart catheterization on Tuesday Hypertension Hyperlipidemia Diabetes mellitus type 2 Time spent 50 minutes Advanced care planning time 20 minutes Patient is full code Plan discussed with: Patient Date of Service: Apr 21, 2025 Billing Provider: NADYA REYNOSO MD Common Visit Codes: [id number] INP/OBS CARE(HIGH) Secondary Visit Codes: [id number] CARE PLAN 30 MINUTES NADYA REYNOSO MD Apr 21, 2025 12:57
--- NOTE | 2025-04-21 13:45 | DVHSR ---
APPROVED REPORT EXAM: Two-dimensional and M-mode echocardiogram with Doppler and color Doppler. Blood Pressure: 161/84 mmHg INDICATION Chest Pain RISK FACTORS Height: 5'4", Weight: 168 DIMENSIONS LVDd3.7 (3.8-5.7cm)LA (2D)4.1 (1.9-4.0cm)Aortic Root3.2 (2.0-3.7cm) LVDs2.5 (2.5-4.0cm)LA (MM) (1.9-4.0cm)Aortic Cusp Exc1.7 (1.5-2.0cm) EF (%) 60.0 (55-70%)Rt. Atrium3.3 (1.9-4.0cm)Asc. Aorta cm IVSd1.0 (0.7-1.1cm)RV (D)3.5 (1.8-2.4cm) PWd1.1 (0.7-1.1cm) Mitral Valve MitralMitral Stenosis E wave0.92m/sMV Mean GR.mmHg A wave1.16m/sMV Peak GR.mmHg E/A ratio0.82D MVAcm2 DECEL [id number] 1/2 Timems Aortic Valve Aortic ValveAortic Stenosis V11.15m/Mirela Mean GR.6mmHg V21.70m/Mirela Peak GR.12mmHg LVOT Diameter1.9 (1.8-2.4cm)Doppler AVA1.92cm2 Pulmonic Valve V21.00m/s Tricuspid Valve TR Velocity2.99m/s [id number] Conclusion lvef 60% normal rv function left atrium enlarged no severe valve abnormaliteis noted
[2025-04-22] VITALS (12 sets, daily range): BP systolic 111–149; BP diastolic 63–90; PULSE 75–117; RESP 15–20; TEMP 96.8–98.4; O2SAT 93–100
[2025-04-22 06:23] LABS: Alanine Aminotransferase 26 U/L (7-40); Albumin 4.0 g/dL (3.2-4.8); Alkaline Phosphatase 71 U/L (46-116); Anion Gap 11 (5-15); BUN/Creatinine Ratio 15.6 (10.0-20.0); Bilirubin, Total 0.8 mg/dL (0.2-1.0); Blood Urea Nitrogen 10 mg/dL (9-23); Calcium 8.8 mg/dL (8.7-10.4); Carbon Dioxide 23 mmol/L (20-31); Potassium 4.1 mmol/L (3.5-5.1); Sodium 143 mmol/L (136-145); Total Protein 6.5 g/dL (5.7-8.2)
[2025-04-22 06:24] LABS: Chloride 109 mmol/L (98-107); Glucose 115 mg/dL (74-106)
--- NOTE | 2025-04-22 09:27 | DVHPN2 ---
Reviewed: Care Plan, H&P, Labs, Medications, Previous Orders, Radiology Changes from previous H/P or p: No Changes Objective Vitals Vital Signs Date Time Temp Pulse Resp B/P (MAP) Pulse Ox O2 Delivery O2 Flow Rate FiO2 04/22/25 08:00 85 20 Room Air* 0 21 04/22/25 04:43 98.1 128/84 (99) 96 98.1 Intake/Output Intake and Output 04/22/25 07:00 Intake Total 1450 ml Output Total 2 ml Balance 1448 ml Intake Oral 1450 ml Output Stool Total 2 ml # Voids 9 Medications Current Medications Medications Dose Ordered Sig/Noah Route Start Time Stop Time Status Last Admin Dose Admin Hydralazine HCl 10 mg Q6HP PRN IV 04/20/25 11:00 04/20/25 21:20 10 MG Ondansetron HCl 4 mg Q4HP PRN IV 04/20/25 11:00 Nitroglycerin 0.4 mg Q5MINP PRN SL 04/20/25 11:00 Morphine Sulfate 2 mg Q30M PRN IV 04/20/25 11:30 Lisinopril 20 mg DAILY PO 04/21/25 10:00 04/21/25 09:56 20 MG Diagnostic Test (Pha) 1 strip ACHS 04/20/25 17:00 04/22/25 06:00 1 STRIP Insulin Human Regular ACHS SC 04/20/25 17:00 04/22/25 06:22 2 UNITS Dextrose 50 ml UD PRN IV 04/20/25 13:15 Atorvastatin Calcium 40 mg HS PO 04/20/25 22:00 04/21/25 21:08 40 MG Aspirin 81 mg DAILY PO 04/21/25 10:00 04/21/25 09:55 81 MG Acetaminophen 650 mg Q6HP PRN PO 04/20/25 21:00 04/21/25 21:08 650 MG Enoxaparin Sodium 80 mg Q12HR SC 04/21/25 10:00 04/21/25 21:09 80 MG Laboratory Results Laboratory Tests 04/20/25 05:22 04/22/25 04:29 Chemistry Test 04/22/25 04:29 Albumin 4.0 g/dL (3.2-4.8) Calcium Level 8.8 mg/dL (8.7-10.4) Total Protein 6.5 g/dL (5.7-8.2) LFT Test 04/22/25 04:29 Alanine Aminotransferase (ALT) 26 U/L (7-40) Alkaline Phosphatase 71 U/L (46-116) Aspartate Amino Transferase (AST) 38 U/L (13-40) Total Bilirubin 0.8 mg/dL (0.2-1.0) Urinalysis Test 04/20/25 09:39 Urine Color Light-yellow (Yellow) Urine Clarity Turbid (Clear) H Urine pH 5.5 (5.0-9.0) Urine Specific [place] 1.017 (1.001-1.035) Urine Protein Negative (Negative) Urine Ketones Negative (Negative) Urine Blood Negative /uL (Negative) Urine Nitrite Negative (Negative) Urine Bilirubin Negative (Negative) Urine Urobilinogen Normal mg/dL (Negative) Urine Leukocyte Esterase 1+ /uL (Negative) Urine RBC 3 /hpf (0 - 4) Urine Microscopic WBC 4 /HPF (0-5) Urine Squamous Epithelial Cells Few /hpf (<5) Urine Bacteria Mod /hpf (None Seen) H Urine Mucus Few (None Seen) Urine Glucose Normal mg/dL (Normal) Labs and/or images reviewed: Labs reviewed by me, Image(s) reviewed by me Assessment/Plan Assessment/Plan Acute non ST-elevation [place] troponin 134, treatment per ACS protocol . Consult by Dr. Larios appreciated planning for left heart catheterization today Hypertension Hyperlipidemia Diabetes mellitus type 2 Time spent 50 minutes Advanced care planning time 20 minutes Patient is full code Plan discussed with: Patient My Orders Orders - NADYA REYNOSO MD Procedure Category Date Status Time Code Status CODE 04/21/25 Transmitted 13:04 Date of Service: Apr 22, 2025 Billing Provider: NADYA REYNOSO MD Common Visit Codes: [id number] INP/OBS CARE(HIGH) NADYA REYNOSO MD Apr 22, 2025 09:27
[2025-04-22] MEDS: IODIXANOL 320MG/ML 100ML BTL IV ONE (09:29)
[2025-04-22] MEDS: ANGIOMAX 250 MG VIAL IV ONE (09:38)
[2025-04-22] MEDS: HEPARIN SODIUM (PORCINE) 5000 UNITS/ML 1ML VIAL ONE (09:38)
[2025-04-22] MEDS: SODIUM CHL 0.9% 0 ML ONE (09:39)
[2025-04-22] MEDS: LIDOCAINE 2%HCL (LOCAL ANESTH.) INJ 20ML MDV ONE (09:39)
[2025-04-22] MEDS: MIDAZOLAM HCL 2MG/2ML 2ml VIAL (1mg/ml) ONE (09:39)
[2025-04-22] MEDS: fentaNYL CITRATE 100 MCG/2 ML VL ONE (09:39)
[2025-04-22] MEDS: VERAPAMIL 2.5MG/ML INJ 2ML VIAL IV ONE (09:39)
--- NOTE | 2025-04-22 10:03 | DVHPN2 ---
Progress Note Date Seen: Apr 22, 2025 Medical Necessity Reason Pt with a Central, PICC or Fol: No Subjective Patient reports: Feels better Objective vital signs Vital Sign Date Time Temp Pulse Resp B/P (MAP) Pulse Ox O2 Delivery O2 Flow Rate FiO2 04/22/25 08:00 85 20 Room Air* 0 21 04/22/25 04:43 98.1 128/84 (99) 96 98.1 Total Intake and Output 04/21/25 04/21/25 04/22/25 15:00 23:00 07:00 Intake Total 650 ml 800 ml Output Total 1 ml 1 ml Balance 649 ml 799 ml medications Current Medications Medications Dose Ordered Sig/Noah Route Start Time Stop Time Status Last Admin Dose Admin Hydralazine HCl 10 mg Q6HP PRN IV 04/20/25 11:00 04/20/25 21:20 10 MG Ondansetron HCl 4 mg Q4HP PRN IV 04/20/25 11:00 Nitroglycerin 0.4 mg Q5MINP PRN SL 04/20/25 11:00 Morphine Sulfate 2 mg Q30M PRN IV 04/20/25 11:30 Lisinopril 20 mg DAILY PO 04/21/25 10:00 04/21/25 09:56 20 MG Diagnostic Test (Pha) 1 strip ACHS 04/20/25 17:00 04/22/25 06:00 1 STRIP Insulin Human Regular ACHS SC 04/20/25 17:00 04/22/25 06:22 2 UNITS Dextrose 50 ml UD PRN IV 04/20/25 13:15 Atorvastatin Calcium 40 mg HS PO 04/20/25 22:00 04/21/25 21:08 40 MG Aspirin 81 mg DAILY PO 04/21/25 10:00 04/21/25 09:55 81 MG Acetaminophen 650 mg Q6HP PRN PO 04/20/25 21:00 04/21/25 21:08 650 MG Enoxaparin Sodium 80 mg Q12HR SC 04/21/25 10:00 04/21/25 21:09 80 MG Examination: GENERAL:Abnormal, HEENT:Abnormal, LUNGS:Abnormal, CVS:Abnormal, ABDOMEN:Abnormal laboratory and microbiology Laboratory Tests 04/22/25 04:29 04/20/25 05:22 Test 04/22/25 04:29 Range/Units Serum Glucose 115 H 74-106 mg/dL Problem List/Assessment/Plan Problem List/Assessment/Plan nstemi htn HL no severe cad on cath dc home on asa , statin outpt fu with her pcp and bp meds as per hospitalist Plan discussed with: Patient My Orders My Orders Orders - SKYLAR COELHO MD Procedure Category Date Status Time Cardiac DIET 04/22/25 Transmitted Diet-2gna,Lofat,Lochol Breakfast Date of Service: Apr 22, 2025 Billing Provider: SKYLAR COELHO MD Common Visit Codes: NOT BILLABLE SKYLAR COELHO MD Apr 22, 2025 10:03
--- NOTE | 2025-04-22 10:05 | DVHOP2 ---
Operative Report Operative Report CARDIAC TERMINAL OPERATIONS MANAGER PROCEDURE REPORT [place], [place] Date of Service: 04/22/25 Lead Teller: Skylar Coelho MD PROCEDURES PERFORMED: Coronary angiogram, left heart catheterization, conscious sedation administration and supervision, less than 15 minutes; fluoroscopy use and interpretation. PREOPERATIVE DIAGNOSES: nstemi POSTOP DIAGNOSIS: nstemi DESCRIPTION OF PROCEDURE: The patient or appropriate family signed informed consent understanding the risks, benefits and alternatives of the procedure, they wished to proceed. The patient was brought to the cardiac yard labor supervisor in n.p.o. state. The patient was prepped in a sterile fashion. Sedation was used per cardiac cath protocol. I administered 2 mL of 2% lidocaine to the right wrist. With an antegrade front wall puncture. I cannulated the right radial artery and placed a 6-Yoruba Glidesheath slender. Next, an intra-arterial spasmolytic was administered. Next, a - 5French Funk catheter were used for coronary angiogram and LVEDP measurement and pressure pullback. At the completion of procedure, all guides and wires were removed, and there were no immediate complications. FINDINGS: RCA: Moderate vessel off the right sinus of Valsalva, there is no severe flow limiting stenosis. non dominant vessel LEFT MAIN: Moderate size left main, it bifurcates into LAD and circumflex. patent CIRCUMFLEX: Moderate caliber vessel coming off the left main with no flow limiting stenosis. large dominant vessel LAD: LAD is a moderate caliber vessel coming of the left main. no stenosis. lvedp of 14 mmhg CONCLUSIONS: 1. no severe cad noted PLAN: Aggressive risk factor modification and medical management for the patient. SKYLAR COELHO MD Apr 22, 2025 10:05
[2025-04-22] MEDS: NITROGLYCERIN 50MG/250ML 250 ML IV ONE (10:09)
[2025-04-22] MEDS: ONDANSETRON HCL 4 MG/2 ML VIAL IV PRN (11:43)
[2025-04-23 05:00] VITALS: BP 115/64; PULSE 88; RESP 18; TEMP 98.5; O2SAT 97
[2025-04-23 08:00] VITALS: PULSE 80; RESP 18; O2SAT 99
[2025-04-23 09:01] VITALS: BP_SYST 126; BP_SYST 129; BP_DIAS 79; BP_DIAS 82; PULSE 95; RESP 17; TEMP 98.8; O2SAT 96
--- NOTE | 2025-04-23 09:33 | DVHPN2 ---
Reviewed: Care Plan, H&P, Labs, Medications, Previous Orders, Radiology Changes from previous H/P or p: No Changes Objective Vitals Vital Signs Date Time Temp Pulse Resp B/P (MAP) Pulse Ox O2 Delivery O2 Flow Rate FiO2 04/23/25 09:02 98.8 04/23/25 09:01 95 17 126/82 (97) 96 04/23/25 08:00 Room Air* 0 21 Intake/Output Intake and Output 04/23/25 07:00 Intake Total 950 ml Balance 950 ml Intake Oral 950 ml # Voids 6 Medications Current Medications Medications Dose Ordered Sig/Noah Route Start Time Stop Time Status Last Admin Dose Admin Hydralazine HCl 10 mg Q6HP PRN IV 04/20/25 11:00 04/20/25 21:20 10 MG Ondansetron HCl 4 mg Q4HP PRN IV 04/20/25 11:00 04/22/25 11:43 4 MG Nitroglycerin 0.4 mg Q5MINP PRN SL 04/20/25 11:00 Morphine Sulfate 2 mg Q30M PRN IV 04/20/25 11:30 Lisinopril 20 mg DAILY PO 04/21/25 10:00 04/23/25 09:01 20 MG Diagnostic Test (Pha) 1 strip ACHS 04/20/25 17:00 04/23/25 06:14 1 STRIP Insulin Human Regular ACHS SC 04/20/25 17:00 04/23/25 06:14 2 UNITS Dextrose 50 ml UD PRN IV 04/20/25 13:15 Atorvastatin Calcium 40 mg HS PO 04/20/25 22:00 04/22/25 21:19 40 MG Aspirin 81 mg DAILY PO 04/21/25 10:00 04/23/25 09:00 81 MG Acetaminophen 650 mg Q6HP PRN PO 04/20/25 21:00 04/23/25 09:02 650 MG Enoxaparin Sodium 80 mg Q12HR SC 04/21/25 10:00 04/23/25 09:01 80 MG Laboratory Results Laboratory Tests 04/20/25 05:22 04/22/25 04:29 Urinalysis Test 04/20/25 09:39 Urine Color Light-yellow (Yellow) Urine Clarity Turbid (Clear) H Urine pH 5.5 (5.0-9.0) Urine Specific [place] 1.017 (1.001-1.035) Urine Protein Negative (Negative) Urine Ketones Negative (Negative) Urine Blood Negative /uL (Negative) Urine Nitrite Negative (Negative) Urine Bilirubin Negative (Negative) Urine Urobilinogen Normal mg/dL (Negative) Urine Leukocyte Esterase 1+ /uL (Negative) Urine RBC 3 /hpf (0 - 4) Urine Microscopic WBC 4 /HPF (0-5) Urine Squamous Epithelial Cells Few /hpf (<5) Urine Bacteria Mod /hpf (None Seen) H Urine Mucus Few (None Seen) Urine Glucose Normal mg/dL (Normal) Labs and/or images reviewed: Labs reviewed by me, Image(s) reviewed by me Assessment/Plan Assessment/Plan Acute non ST-elevation [place] troponin 134, treatment per ACS protocol . Consult by Dr. Larios appreciated , left heart catheterization by Dr. Larios 04/22/2025 shows no coronary artery disease Hypertension Hyperlipidemia Diabetes mellitus type 2 Possible GERD: Pantoprazole Time spent 50 minutes Advanced care planning time 20 minutes Patient is full code Discussed discharge plan with the patient in the presence of UNRULY Jonas and she is agreeable Plan discussed with: Patient Date of Service: Apr 23, 2025 Billing Provider: NADYA REYNOSO MD Common Visit Codes: [id number] INP/OBS CARE(HIGH) NADYA REYNOSO MD Apr 23, 2025 09:33
--- NOTE | 2025-04-23 09:37 | DVHDS2 ---
Discharge Summary Date of Admission Apr 20, 2025 at 10:55 Date of Discharge: Apr 23, 2025 Admitting Diagnosis Chest pain Wounds: Left heart catheterization Labs/Diagnostic Data: Laboratory Results Test 04/22/25 16:45 04/22/25 04:29 04/21/25 04:29 04/20/25 09:39 POC Glucose 225 mg/dl (70-106) Sodium Level 143 mmol/L (136-145) Potassium Level 4.1 mmol/L (3.5-5.1) Chloride Level 109 mmol/L (98-107) Carbon Dioxide Level 23 mmol/L (20-31) Anion Gap 11 (5-15) Blood Urea Nitrogen 10 mg/dL (9-23) Creatinine 0.64 mg/dL (0.550-1.02) Glomerular Filtration Rate Calc 101 mL/min (>90) BUN/Creatinine Ratio 15.6 (10.0-20.0) Serum Glucose 115 mg/dL (74-106) Calcium Level 8.8 mg/dL (8.7-10.4) Total Bilirubin 0.8 mg/dL (0.2-1.0) Aspartate Amino Transferase (AST) 38 U/L (13-40) Alanine Aminotransferase (ALT) 26 U/L (7-40) Alkaline Phosphatase 71 U/L (46-116) Total Protein 6.5 g/dL (5.7-8.2) Albumin 4.0 g/dL (3.2-4.8) Prothrombin Time 11.0 sec (9.3-11.8) Prothrombin Time INR 1.04 (0.9-1.15) Activated Partial Thromboplast Time 28.4 SEC (24.5-34.5) Hemoglobin A1c 7.5 % A1C (<5.7) Magnesium Level 1.9 mg/dL (1.6-2.6) Urine Color Light-yellow (Yellow) Urine Clarity Turbid (Clear) Urine pH 5.5 (5.0-9.0) Urine Specific [place] 1.017 (1.001-1.035) Urine Protein Negative (Negative) Urine Ketones Negative (Negative) Urine Blood Negative /uL (Negative) Urine Nitrite Negative (Negative) Urine Bilirubin Negative (Negative) Urine Urobilinogen Normal mg/dL (Negative) Urine Leukocyte Esterase 1+ /uL (Negative) Urine RBC 3 /hpf (0 - 4) Urine Microscopic WBC 4 /HPF (0-5) Urine Squamous Epithelial Cells Few /hpf (<5) Urine Bacteria Mod /hpf (None Seen) Urine Mucus Few (None Seen) Urine Glucose Normal mg/dL (Normal) Test 04/20/25 08:16 04/20/25 05:22 Troponin I High Sensitivity 134 ng/L (</=34) Triglycerides Level 142 mg/dL (< 150) Cholesterol Level 150 mg/dL (< 200) LDL Cholesterol 94 mg/dL (< 100) HDL Cholesterol 41 mg/dL (40-59) Thyroid Stimulating Hormone (TSH) 2.29 uIU/mL (0.55-4.78) White Blood Count 5.2 10^3/uL (4.4-10.8) Red Blood Count 4.83 10^6/uL (4.0-5.20) Hemoglobin 14.4 g/dL (12.2-16.2) Hematocrit 42.1 % (36.0-46.0) Mean Corpuscular Volume 87.2 fL (80.0-100.0) Mean Corpuscular Hemoglobin 29.9 pg (28.0-32.0) Mean Corpuscular Hemoglobin Concent 34.2 g/dL (32.0-36.0) Red Cell Distribution Width 13.8 % (11.8-14.3) Platelet Count 217 10^3/uL (140-450) Mean Platelet Volume 9.2 fL (6.9-10.8) Neutrophils (%) (Auto) 49.4 % (37.0-80.0) Lymphocytes (%) (Auto) 39.6 % (10.0-50.0) Monocytes (%) (Auto) 7.6 % (0.0-12.0) Eosinophils (%) (Auto) 2.3 % (0.0-7.0) Basophils (%) (Auto) 1.1 % (0.0-2.0) Neutrophils # (Auto) 2.6 10 ^3/uL (1.6-8.6) Lymphocytes # (Auto) 2.1 10 ^3/uL (0.4-5.4) Monocytes # (Auto) 0.4 10 ^3/uL (0-1.3) Eosinophils # (Auto) 0.1 10 ^3/uL (0-0.8) Basophils # (Auto) 0.1 10 ^3/uL (0-0.2) Nucleated Red Blood Cells 0.0 % Other Laboratory Tests 04/22/25 04:29 04/20/25 05:22 Brief Hx & Hospital Course: 59-year-old female with a history of hypertension hypercholesterolemia diabetes came in for chest pain troponin borderline elevated 134 treated per ACS protocol left heart catheterization by Dr. Larios 04/22/2025 showed no coronary artery disease. The patient possibly has a GERD. Patient feels better with a stable vital signs discharged home she was advised to follow up with the primary Dr at [place] for referral to GI Dr for possible EGD prescription for aspirin and pantoprazole sent to the pharmacy. She will continue her home medications lisinopril Lipitor and metformin. Consults/Reason for consult Cardiology Dr. Larios Operations or Procedures Left heart catheterization Condition at Discharge: Fair Final Diagnosis/Problems List Acute non ST-elevation [place] troponin 134, treatment per ACS protocol . Consult by Dr. Larios appreciated , left heart catheterization by Dr. Larios 04/22/2025 shows no coronary artery disease Hypertension Hyperlipidemia Diabetes mellitus type 2 Possible GERD: Pantoprazole Discharge Disposition: Home Discharge Instruct/Medications Diet: Consistent carbohydrate Activity: Light activity Follow Up/Referral: Follow up with the primary Dr in [place] You are advised to request your primary Dr for referral to GI Dr for possible EGD for your heartburn Continue home medications Lipitor lisinopril metformin Medications: Aspirin Pantoprazole Transmitted to pharmacy Scheduled Atorvastatin Calcium (Lipitor), 40 MG PO DAILY, (Reported) Lisinopril (Lisinopril), 5 MG PO DAILY, (Reported) Metformin Hydrochloride (Metformin Hcl), 1 TAB PO BID, (Reported) 39 (Time taken for discharge summary 39 minutes) Discharge Statement: "Patient was advised to return to the ER or call 911 if any headaches, dizziness, shortness of breath, chest pain, abdominal pain, bleeding, fevers, or worsening of medical condition. Patient was counseled about treatment plan, medications, possible side effects, patientverbalized understanding. All questions were answered to the best of my ability. This discharge took greater then 30 minutes in planning, reviewing documentation, counseling the patient, and discussing with other team members." ASSESSMENT ASSESSMENT Hospital Course Improved Assessment Acute non ST-elevation [place] troponin 134, treatment per ACS protocol . Consult by Dr. Larios appreciated , left heart catheterization by Dr. Larios 04/22/2025 shows no coronary artery disease Hypertension Hyperlipidemia Diabetes mellitus type 2 Possible GERD: Pantoprazole Date of Service: Apr 23, 2025 Billing Provider: NADYA REYNOSO MD Common Visit Codes: [id number] DISCH DAY >30min NADYA REYNOSO MD Apr 23, 2025 09:37
[2025-04-23] MEDS ORDERED: PANT40T PO (09:55)
[2025-04-23] MEDS ORDERED: ASPI1TAB19 PO (09:55)
[2025-04-23 10:57] VITALS: BP 126/82; TEMP 37.1
[2025-04-23 13:00] VITALS: BP 134/77; PULSE 61; RESP 18; TEMP 98; O2SAT 95
[2025-04-23] MEDS ORDERED: ENOXAPARIN SOD 80 MG/0.8ML SYRINGE SC SCH (22:00)
== END 2025-04-23 13:08 | disposition home or self-care (01) | DRG 282 ==
LOC: ER 04:42 → OVERFLOW 10:55 → TELE-CENTR 12:48
PROVIDERS: ADMIT Family Medicine; ATTEND Family Medicine
PROC: 4A023N7 Measurement of Cardiac Sampling and Pressure, Left Heart, Percutaneous Approach (ICD-10-PCS; principal; 2025-04-22)
PROC: B211YZZ Fluoroscopy of Multiple Coronary Arteries using Other Contrast (ICD-10-PCS; 2025-04-22)
DX: I21.4 Non-ST elevation (NSTEMI) myocardial infarction (principal); E11.9 Type 2 diabetes mellitus without complications; I10 Essential (primary) hypertension; K21.9 Gastro-esophageal reflux disease without esophagitis; E78.5 Hyperlipidemia, unspecified; Z79.82 Long term (current) use of aspirin; Z79.84 Long term (current) use of oral hypoglycemic drugs; Z79.899 Other long term (current) drug therapy; Z82.49 Family history of ischemic heart disease and other diseases of the circulatory system
CPT/HCPCS: 36415; 71046; 80048; 80053; 80061; 81001; 82962; 83036; 83735; 84443; 84484; 85025; 85610; 85730; 93005; 93306; 93458; 96374; 99152; 99291; 99292; G0378; J1815; J2250; J2405; J3480; Q9967